=== PATIENT | female | born 2005 | race Caucasian/White ===

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

== ENCOUNTER 2024-07-05 23:16 | Inpatient (IN) | payer OTHER, MEDICAID ==
[2024-07-06] MEDS ORDERED: Ondansetron ODT 4 MG TAB SL PRN (01:15)
[2024-07-06] MEDS ORDERED: Ondansetron PF 4 MG/2 ML Vial IVP PRN (01:15)
[2024-07-06] MEDS ORDERED: Acetaminophen 325 MG TAB PO PRN (01:15)
[2024-07-06 02:13] VITALS: BMI 21.4
[2024-07-06] MEDS: Lactated Ringer's 1,000 ML IV SCH (03:48)
[2024-07-06 07:40] LABS: #Basophils Less than 0.03 10x3/uL (0.0-0.2); #Eosinophils Less than 0.03 10x3/uL (0.0-0.7); %Basophils 0.5 % (0.0-1.0); %Lymphocytes 33.5 % (28.0-48.0); %Monocytes 18.6 % (0.0-4.0); %Neutrophils 46.9 % (31.0-61.0); Hematocrit 34.3 % (36.0-47.0); Hemoglobin 11.7 g/dL (12.0-16.0); Mean Corpuscular HGB CONC 34.1 g/dL (32.0-36.0); Mean Corpuscular Hemoglobin 27.9 pg (25.0-35.0); Mean Corpuscular Volume 81.7 fL (78.0-98.0); Platelet Count 98 10x3/uL (130-400); RBC Distribution Width 14.3 % (11.5-14.5)
[2024-07-06 07:46] LABS: Anion Gap 11 mmol/L (10-20); BUN (Urea Nitrogen) 5 mg/dL (7.0-18.7); Calc. Creatinine Clearance 153 mL/min (70-130); Carbon Dioxide 16 mmol/L (22-29); Chloride 111 mmol/L (98-107); Estimated GFR 135; Glucose 78 mg/dL (70-105); Potassium 3.4 mmol/L (3.5-5.1); Sodium 135 mmol/L (136-145)
[2024-07-06 08:19] LABS: Band 3 % (5-11); Burr Cells SLIGHT = 2-5 cells HPF (0-1); Large Platelets 5.1 % (0-5); Lymphocytes 22 % (28-48); Metamyelocyte 1 % (0-0); Monocytes 15 % (0-4); Neutrophil 54 % (31-61); Plasma Cells 1 % (0-0); Platelet Adequacy Comment Platelets Decreased; Reactive Lymphocytes 3 % (0-10); Reflex for Review?? YES; Smudge Cells 34.3 %; Toxic Granulation SLIGHT; Vacuoles SLIGHT
[2024-07-06] MEDS: Oseltamivir 75 MG CAP PO SCH (09:40)
[2024-07-06] MEDS: Potassium Chloride 20 MEQ TAB PO SCH (09:40)
[2024-07-06] MEDS: Prenatal Vitamin 1 TAB PO SCH (09:40)
[2024-07-06] MEDS: Acetaminophen 325 MG TAB PO PRN (09:51)
[2024-07-06] MEDS: cefTRIAXone\\ROCEPHIN 1 GM in Sodium Chloride 0.9% 100 ML IVPB SCH (21:03)
[2024-07-06] MEDS: Ondansetron PF 4 MG/2 ML Vial IVP PRN (21:58)
[2024-07-07 04:15] VITALS: TEMP 98.1
[2024-07-07 08:22] LABS: #Basophils Less than 0.03 10x3/uL (0.0-0.2); #Eosinophils Less than 0.03 10x3/uL (0.0-0.7); %Basophils 0.5 % (0.0-1.0); %Eosinophils 0.5 % (0.0-10.0); %Lymphocytes 55.3 % (28.0-48.0); %Monocytes 8.7 % (0.0-4.0); Hematocrit 38.5 % (36.0-47.0); Mean Corpuscular HGB CONC 33.8 g/dL (32.0-36.0); Mean Corpuscular Hemoglobin 28.1 pg (25.0-35.0); Mean Corpuscular Volume 83.3 fL (78.0-98.0); Platelet Count 87 10x3/uL (130-400); RBC Distribution Width 14.6 % (11.5-14.5); Red Blood Cell (RBC) Count 4.62 mill/uL (4.00-5.20)
[2024-07-07 08:40] LABS: ALT (SGPT) 13 U/L (Less than 34); AST (SGOT) 23 U/L (11-34); Albumin 3.5 g/dL (3.1-4.5); Alkaline Phosphatase 55 U/L (40-100); Anion Gap 14 mmol/L (10-20); BUN (Urea Nitrogen) Less than 4 mg/dL (7.0-18.7); Bilirubin, Total 0.2 mg/dL (0.3-1.2); Calc. Creatinine Clearance 145 mL/min (70-130); Calcium 8.4 mg/dL (7.8-10.44); Carbon Dioxide 20 mmol/L (22-29); Chloride 106 mmol/L (98-107); Estimated GFR 133; Globulin 2.9 g/dL (2.4-3.5); Glucose 93 mg/dL (70-105); Potassium 3.6 mmol/L (3.5-5.1); Protein, Total 6.4 g/dL (6.0-8.3); Sodium 136 mmol/L (136-145)
[2024-07-07] MEDS ORDERED: Ondansetron PF 4 MG/2 ML Vial IVP SCH (09:00)
[2024-07-07] MEDS ORDERED: Ondansetron HCl/PF 8 MG in Sodium Chloride 0.9% 50 ML IVPB SCH (09:00)
[2024-07-07] MEDS: Ondansetron PF 4 MG/2 ML Vial IVP SCH (10:45)
[2024-07-07 12:57] VITALS: BP 99/65
[2024-07-07] MEDS ORDERED: Promethazine HCl 25 MG/ML VIAL IM PRN (14:53)
[2024-07-07] MEDS: Pantoprazole 40 MG VIAL IVP SCH (16:11)
== END 2024-07-07 17:23 | disposition home or self-care (01) | DRG 831 ==
LOC: T4-A 07-06 00:15
PROVIDERS: ADMIT Emergency Medicine; ATTEND Emergency Medicine
DX: O98.811 Other maternal infectious and parasitic diseases complicating pregnancy, first trimester (principal); A41.9 Sepsis, unspecified organism; O23.41 Unspecified infection of urinary tract in pregnancy, first trimester; D61.818 Other pancytopenia; Z3A.14 14 weeks gestation of pregnancy; J10.1 Influenza due to other identified influenza virus with other respiratory manifestations; O99.511 Diseases of the respiratory system complicating pregnancy, first trimester; E86.0 Dehydration; O99.281 Endocrine, nutritional and metabolic diseases complicating pregnancy, first trimester; O99.011 Anemia complicating pregnancy, first trimester; D64.9 Anemia, unspecified
CPT/HCPCS: 36415; 76705; 76770; 76815; 80048; 80053; 84443; 85025; 85060; 87040; 87086; 93005; 93010; J0696; J2405; J2470; J7120